=== PATIENT | male | born 1985 | race Two or more races ===

== ENCOUNTER → 2021-04-29 | Emergency (ER) | payer OTHER ==
[~2021-04-29] VITALS: Ht 185.4 cm; Wt 70.3 kg
[~2021-04-29] MED LIST: PANTOPRAZOLE SO40 MG PO
== END | disposition home or self-care (01) ==
LOC: ER 10:58
DX: S61.240A Puncture wound with foreign body of right index finger without damage to nail, initial encounter (principal); W46.0XXA Contact with hypodermic needle, initial encounter; Y93.89 Activity, other specified; Y92.69 Other specified industrial and construction area as the place of occurrence of the external cause; Y99.8 Other external cause status

== ENCOUNTER 2021-06-11 07:40 | Outpatient (CLI) | payer OTHER | END 2021-06-11 11:55 | disposition home or self-care (01) | LOC: LAB 07:40 | DX: U07.1 COVID-19 (principal) ==

== ENCOUNTER 2021-09-02 13:40 | Outpatient (CLI) | payer OTHER | END 2021-09-02 13:54 | disposition home or self-care (01) | LOC: LAB 13:40 | DX: U07.1 COVID-19 (principal) ==

== ENCOUNTER 2021-09-04 07:17 | Outpatient (CLI) | payer OTHER | END 2021-09-04 07:25 | disposition home or self-care (01) | LOC: LAB 07:17 | PROVIDERS: ATTEND Preventive Medicine Occupational Medicine | DX: U07.1 COVID-19 (principal) ==

== ENCOUNTER → 2021-10-31 | Outpatient (CLI) | payer OTHER | END | disposition home or self-care (01) | LOC: LAB 06:41 | PROVIDERS: ATTEND General Practice | DX: Z00.00 Encounter for general adult medical examination without abnormal findings (principal); E78.5 Hyperlipidemia, unspecified; E55.9 Vitamin D deficiency, unspecified; N39.0 Urinary tract infection, site not specified; R51.9 Headache, unspecified; R42 Dizziness and giddiness; M54.2 Cervicalgia ==

== ENCOUNTER 2022-01-07 09:08 | Outpatient (CLI) | payer OTHER | END 2022-01-07 09:13 | disposition home or self-care (01) | LOC: PPH VACUNA 09:08 | PROVIDERS: ATTEND Emergency Medicine Pediatric Emergency Medicine | DX: Z23 Encounter for immunization (principal) ==

== ENCOUNTER 2022-01-29 13:32 | Outpatient (CLI) | payer OTHER | END 2022-01-29 13:37 | disposition home or self-care (01) | LOC: PPH VACUNA 13:32 | PROVIDERS: ATTEND Emergency Medicine Pediatric Emergency Medicine | DX: Z23 Encounter for immunization (principal) ==

== ENCOUNTER → 2022-02-03 11:41 | Outpatient (CLI) | payer OTHER | END | disposition home or self-care (01) | LOC: LAB 11:41 | PROVIDERS: ATTEND General Practice | DX: R05.9 Cough, unspecified (principal); R50.9 Fever, unspecified; R06.02 Shortness of breath; Z20.822 Contact with and (suspected) exposure to COVID-19 ==

== ENCOUNTER 2022-04-07 09:05 | Outpatient (CLI) | payer OTHER | END 2022-04-07 09:12 | disposition home or self-care (01) | LOC: LAB 09:05 | DX: U07.1 COVID-19 (principal) ==